=== PATIENT | female | born 1975 ===

== ENCOUNTER 2017-08-17 17:57 | Emergency (ER) | payer OTHER ==
[2017-08-17 17:57] VITALS: BMI 32.3
--- NOTE | 2017-08-17 18:40 | ED PDOC ---
Arrival/HPI - General Chief Complaint: Chest Pain Time Seen by Provider: 08/17/17 18:23 Historian: Patient - History of Present Illness Narrative History of Present Illness (Text): 08/17/17 18:41 41 year old female, with past medical history of hypothyroidism, presents to the Emergency department for complaining of pleuritic chest pain for past two days. Patient informs worsening pain with inspiration but states improvement with movement. Patient denies any fever, chills, nausea, vomiting, diarrhea, abdominal pain, chest pain, cough or any other complaints. She denies hx of htn , dm, tobacco use or cocaine use. Denies family hx of sudden cardiac . Denies syncope. Time/Duration: Other (2 days) Symptom Onset: Gradual Quality: Aching Past Medical History - Provider Review Nursing Documentation Reviewed: Yes - Infectious Disease Hx of Infectious Diseases: None - Tetanus Immunization Tetanus Immunization: Unknown - Cardiac Hx Cardiac Disorders: No - Pulmonary Hx Asthma: Yes (At time of of son 17 years ago.) - Neurological Hx Neurological Disorder: No - HEENT Hx HEENT Disorder: No - Renal Hx Renal Disorder: No - Endocrine/Metabolic Hx Hypothyroidism: Yes - Hematological/Oncological Hx Blood Disorders: No - Integumentary Hx Dermatological Disorder: No - Musculoskeletal/Rheumatological Hx Musculoskeletal Disorders: No - Gastrointestinal Hx Gastrointestinal Disorders: No - Genitourinary/Gynecological Hx Genitourinary Disorders: No - Psychiatric Hx Depression: No Hx Emotional Abuse: No Hx Physical Abuse: No Hx Substance Use: No - Surgical History Hx Splenectomy: (2006) Hx Thyroidectomy: Yes - Suicidal Assessment Feels Threatened In Home Enviroment: No Family/Social History - Physician Review Nursing Documentation Reviewed: Yes Family/Social History: No Known Family HX Smoking Status: Never Smoked Hx Alcohol Use: No Hx Substance Use: No Allergies/Home Meds Allergies/Adverse Reactions: Allergies No Known Allergies Allergy (Verified 08/17/17 18:11) Home Medications: Home Meds Medication Instructions Recorded Confirmed Levothyroxine [Synthroid] 125 mcg PO DAILY 06/17/15 08/17/17 Review of Systems - Physician Review All systems were reviewed & negative as marked: Yes - Review of Systems Constitutional: absent: Fevers Respiratory: absent: SOB, Cough Cardiovascular: Chest Pain Gastrointestinal: absent: Abdominal Pain, Diarrhea, Nausea, Vomiting Physical Exam Vital Signs Reviewed: Yes Vital Signs Temp Pulse Resp BP Pulse Ox 08/17/17 21:30 19 99 08/17/17 20:56 70 19 99 08/17/17 18:50 98.5 F 74 19 126/77 99 08/17/17 18:29 98.3 F 75 18 132/71 98 Temperature: Afebrile Blood Pressure: Normal Pulse: Regular Respiratory Rate: Normal Appearance: Positive for: Well-Appearing, Non-Toxic, Comfortable Pain Distress: None Mental Status: Positive for: Alert and Oriented X 3 - Systems Exam Head: Present: Atraumatic, Normocephalic Pupils: Present: PERRL Extroacular Muscles: Present: EOMI Conjunctiva: Present: Normal Mouth: Present: Moist Mucous Membranes Neck: Present: Normal Range of Motion Respiratory/Chest: Present: Clear to Auscultation, Good Air Exchange. No: Respiratory Distress, Accessory Muscle Use Cardiovascular: Present: Regular Rate and Rhythm, Normal S1, S2. No: Murmurs Abdomen: No: Tenderness, Distention, Peritoneal Signs Back: Present: Normal Inspection Upper Extremity: Present: Normal Inspection. No: Cyanosis, Edema Lower Extremity: Present: Normal Inspection. No: Edema Neurological: Present: GCS=15, CN II-XII Intact, Speech Normal Skin: Present: Warm, Dry, Normal Color. No: Rashes Psychiatric: Present: Alert, Oriented x 3, Normal Insight, Normal Concentration Medical Decision Making ED Course and Treatment: 08/17/17 18:35 Impression: 41 year old female presents to the Emergency department for pleuritic chest pain. No cardiac risk factors Plan: -- Labs -- Chest X-ray -- Aspirin -- Reassess and disposition Progress Notes: 08/17/17 21:29 CT of Chest " Pulmonary arteries: Pulmonary artery is suboptimally opacified. No central pulmonary embolism. No gross evidence of proximal branch embolism. Aorta: No acute findings. No thoracic aortic aneurysm. Lungs: Minimal haziness is noted in the lungs, nonspecific finding. No consolidation. Pleural space: Unremarkable. No significant effusion. No pneumothorax. Heart: Unremarkable. No cardiomegaly. No significant pericardial effusion. No evidence of RV dysfunction. Bones/joints: No acute fracture. No dislocation. Soft tissues: Unremarkable. Lymph nodes: Unremarkable. No enlarged lymph nodes. Small hiatal hernia. IMPRESSION: No acute findings" Labs show baseline anemia. Patient was made aware of her hiatal hernia. Chest pain is atypical and sounds non-cardiac as it is relieved with movement. Patient has no cardiac risk factors. Pain has been persistent x 2 days and resolved in ED after anti-inflammatory. Trop x 1 negative. Patient to follow- up with cardiology as outpatient. 08/17/17 22:03 - Lab Interpretations Lab Results: 08/17/17 19:04 08/17/17 19:04 Lab Results 08/17/17 19:04: Sodium 139, Potassium 3.4 L, Chloride 101, Carbon Dioxide 27, Anion Gap 14, BUN 14, Creatinine 0.9, Est GFR ( Amer) > 60, Est GFR (Non- Af Amer) > 60, Random Glucose 94, Calcium 8.2 L, Phosphorus 3.5, Magnesium 2.0, Total Bilirubin 0.2, AST 22, ALT 22, Alkaline Phosphatase 102, Total Creatine Kinase 127, Troponin I < 0.01, NT-Pro-B Natriuret Pep 46.3, Total Protein 8.2, Albumin 4.1, Globulin 4.1, Albumin/Globulin Ratio 1.0 L 08/17/17 19:04: PT 11.4, INR 1.00, APTT 30.7, D-Dimer, Quantitative 323 H 08/17/17 19:04: WBC 11.8 H D, RBC 3.98, Hgb 9.7 L, Hct 31.5 L, MCV 79.1 L, MCH 24.4 L, MCHC 30.8 L, RDW 16.6 H, Plt Count 416, MPV 8.7, Gran % 63.0, Lymph % ( Auto) 30.3, [place] % (Auto) 5.3, Eos % (Auto) 1.1 L, Baso % (Auto) 0.3, Gran # 7.40 H, Lymph # (Auto) 3.6 H, [place] # (Auto) 0.6, Eos # (Auto) 0.1, Baso # (Auto ) 0.04 - RAD Interpretation Radiology Orders: 08/17/17 18:36 CHEST PORTABLE [RAD] Stat 08/17/17 19:49 ANGIO CHEST PE PROTOCOL [CT] Stat - Medication Orders Current Medication Orders: Discontinued Medications Aspirin (Aspirin Chewable) 324 mg PO STAT STA Stop: 08/17/17 18:37 Last Admin: 04/09/18 19:06 Dose: 324 mg - Scribe Statement The provider has reviewed the documentation as recorded by the Scribe Otilia العراقي. All medical record entries made by the Joãoibe were at my direction and personally dictated by me. I have reviewed the chart and agree that the record accurately reflects my personal performance of the history, physical exam, medical decision making, and the department course for this patient. I have also personally directed, reviewed, and agree with the discharge instructions and disposition. Disposition/Present on Arrival - Present on Arrival Any Indicators Present on Arrival: No History of DVT/PE: No History of Uncontrolled Diabetes: No Urinary Catheter: No History of Decub. Ulcer: No History Surgical Site Infection Following: None - Disposition Have Diagnosis and Disposition been Completed?: Yes Diagnosis: Prolonged QT interval, Hiatal hernia Disposition: HOME/ ROUTINE Disposition Time: 21:27 Patient Plan: Discharge Condition: GOOD Discharge Instructions (ExitCare): Hiatal Hernia, Pleuritic Chest Pain Print Language: DIVEHI Additional Instructions: Follow-up with PMD within 2 days. Return to ED if condition worsens. Follow- up with cardiology within 2 days. Referrals: PCP,NO [Primary Care Provider] - Follow up with primary Navarro Barroso MD [Staff Provider] - Follow up with primary Forms: [employer] (Russian)
[2017-08-17 18:50] VITALS: RESP 19; TEMP 98.5; O2SAT 99
[2017-08-17 19:15] LABS: BASO # 0.04 K/mm3 (0.0-2.0); BASO % 0.3 % (0.0-3.0); EOS # 0.1 (0.0-0.7); EOS % 1.1 % (1.5-5.0); GRAN # 7.4 (1.4-6.5); HEMOGLOBIN 9.7 g/dL (12.0-16.0); LYMPH # 3.6 (1.2-3.4); LYMPH % 30.3 % (22.0-35.0); MEAN CELL VOLUME 79.1 fl (80.0-105.0); MEAN CORPUSCULAR HEMOGLOBIN 24.4 pg (25.0-35.0); MEAN CORPUSCULAR HGB CONC 30.8 g/dl (31.0-37.0); MEAN PLATELET VOLUME 8.7 fl (7.0-11.0); MONO # 0.6 (0.1-0.6); MONO % 5.3 % (1.0-6.0); RBC 3.98 10^6/uL (3.5-6.1); RED CELL DISTRIBUTION WIDTH 16.6 % (11.5-14.5); WHITE BLOOD COUNT 11.8 10^3/ul (4.5-11.0)
[2017-08-17 19:29] LABS: PARTIAL THROMBOPLASTIN TIME 30.7 Seconds (25.1-36.5); PROTHROMBIN TIME 11.4 SECONDS (9.4-12.5)
[2017-08-17 19:43] LABS: ALBUMIN 4.1 g/dL (3.0-4.8); ALT/SGPT 22 U/L (7-56); AST/SGOT 22 U/L (14-36); B-TYPE NATRIURETIC PEPTIDE 46.3 pg/mL (0-450); BLOOD UREA NITROGEN 14 mg/dL (7-21); CALCIUM 8.2 mg/dL (8.4-10.5); GFR AFRICAN-AMERICAN > 60; GFR NON-AFRICAN AMERICAN > 60
[2017-08-17 19:45] LABS: TROPONIN I < 0.01 ng/mL
[2017-08-17] MEDS ORDERED: Iohexol 350 MG/100 ML VIAL ONE (19:52)
[2017-08-17 20:58] VITALS: BP 126/77; PULSE 70
--- NOTE | 2017-08-18 08:57 | CT ---
PROCEDURE: CT Chest with contrast (Pulmonary Angiogram) HISTORY: pleuritic chest pain COMPARISON: None available. TECHNIQUE: Axial computed tomography images were obtained of the chest in the pulmonary arterial phase of enhancement. Coronal and sagittal reformatted images were created and reviewed. Intravenous contrast dose: 100 mL Omnipaque 350 Radiation dose: Total exam DLP = 497.26 mGy-cm. This CT exam was performed using one or more of the following dose reduction techniques: Automated exposure control, adjustment of the mA and/or kV according to patient size, and/or use of iterative reconstruction technique. FINDINGS: PULMONARY ARTERIES: There are no filling defects in the pulmonary arteries to suggest acute pulmonary embolism. AORTA: No acute findings. No thoracic aortic aneurysm. LUNGS: The lungs are clear. No nodule, mass or pulmonary consolidation. PLEURAL SPACES: No effusion or pneuomothorax. HEART: The heart is normal in size. No significant pericardial effusion. LYMPH NODES: No pathologic lymphadenopathy. BONES, CHEST WALL: Unremarkable. No fracture or destructive lesion OTHER FINDINGS: Unremarkable. IMPRESSION: No CTA evidence for acute pulmonary embolism. No consolidation, pleural effusion or pneumothorax. A preliminary report was provided by [facility].
--- NOTE | 2017-08-18 09:34 | RAD ---
HISTORY: chest pain COMPARISON: 06/17/2015 FINDINGS: LUNGS: No active pulmonary disease. PLEURA: No significant pleural effusion identified, no pneumothorax apparent. CARDIOVASCULAR: Normal. OSSEOUS STRUCTURES: No significant abnormalities. VISUALIZED UPPER ABDOMEN: Normal. OTHER FINDINGS: None. IMPRESSION: No active disease.
--- NOTE | 2017-08-18 10:24 | CARD ---
APPROVED REPORT EKG Measurement Heart [id number] <Conclusion> Normal sinus rhythm Prolonged QT Artifact present
== END 2017-08-17 21:31 | disposition home or self-care (01) ==
LOC: ED 17:57
DX: I45.81 Long QT syndrome (principal); K44.9 Diaphragmatic hernia without obstruction or gangrene
CPT/HCPCS: 71045; 71275; 80053; 82550; 83735; 83880; 84100; 84484; 85025; 85378; 85610; 85730; 93005; 99283; Q9967

== ENCOUNTER 2018-01-24 12:26 | Emergency (ER) | payer OTHER ==
[2018-01-24 12:26] VITALS: BMI 32.3
[2018-01-24 13:49] LABS: URINE BILIRUBIN NEGATIVE (NEGATIVE); URINE BLOOD SMALL (NEGATIVE); URINE GLUCOSE (UA) NEGATIVE (NEGATIVE); URINE LEUKOCYTE ESTERASE MODERATE Leu/uL (NEGATIVE); URINE PROTEIN 30 mg/dL (<30 mg/dL); URINE UROBILINOGEN 0.2 E.U./dL (<1 E.U./dL)
[2018-01-24 13:50] LABS: BASO # 0.04 K/mm3 (0.0-2.0); BASO % 0.4 % (0.0-3.0); EOS # 0.2 (0.0-0.7); EOS % 1.6 % (1.5-5.0); GRAN # 6.88 (1.4-6.5); GRAN % 65.1 % (50.0-68.0); HEMOGLOBIN 10.2 g/dL (12.0-16.0); LYMPH # 2.8 (1.2-3.4); LYMPH % 26.7 % (22.0-35.0); MEAN CELL VOLUME 80.1 fl (80.0-105.0); MEAN CORPUSCULAR HEMOGLOBIN 24.8 pg (25.0-35.0); MEAN CORPUSCULAR HGB CONC 30.9 g/dl (31.0-37.0); MONO # 0.7 (0.1-0.6); MONO % 6.2 % (1.0-6.0); RBC 4.12 10^6/uL (3.5-6.1); RED CELL DISTRIBUTION WIDTH 16.9 % (11.5-14.5); WHITE BLOOD COUNT 10.6 10^3/ul (4.5-11.0)
[2018-01-24 13:56] LABS: ALBUMIN 4.6 g/dL (3.0-4.8); ALT/SGPT 16 U/L (7-56); AST/SGOT 37 U/L (14-36); BLOOD UREA NITROGEN 11 mg/dL (7-21); CALCIUM 8.6 mg/dL (8.4-10.5); GFR NON-AFRICAN AMERICAN > 60
--- NOTE | 2018-01-24 14:00 | ED PDOC ---
Arrival/HPI - General Historian: Patient - History of Present Illness Time/Duration: 24 hours (12-16 hours) Symptom Onset: Sudden, Gradual Symptom Course: Worsening Quality: Stabbing - General Chief Complaint: Lower Extremity Problem/Injury Time Seen by Provider: 01/24/18 12:56 - History of Present Illness Narrative History of Present Illness (Text): 01/24/18 13:41 Patient is a 42 year old female with a past medical history of thyroid cancer (s /p resection and radiation x 1 therapy) and hypothyroidism is presenting to the emergency room with a complaint of right sided low back pain. The pain started last night and is located in her right buttocks/low back. It radiates down the back of her right leg and stops above her knee. It also radiates across her back and upwards towards her right shoulder. The pain was mild last night but intensified overnight. She has never experienced this pain before. It is gripping/shooting in nature. Patient also reports having productive cough for the past 4 days. The cough is producing green phlegm. She has not seen anyone for the cough and has been drinking tea. The cough has not improved. She rashid fevers, chills, nausea, vomiting, diarrhea, constipation, chest pain, shortness of breath, abdominal pain, numbness or tingling. PMD: Dr. Hamilton PMH: thyroid cancer (s/p resection and radiation x 1 therapy) and hypothyroidism PSH: thyroidectomy and tubal ligation Social: denies tobacco, alcohol or illicit drug use All: NKDA (Clayton Virk) Past Medical History - Provider Review Nursing Documentation Reviewed: Yes - Infectious Disease Hx of Infectious Diseases: None - Tetanus Immunization Tetanus Immunization: Unknown - Cardiac Hx Cardiac Disorders: No - Pulmonary Hx Asthma: Yes (At time of of son 17 years ago.) - Neurological Hx Neurological Disorder: No - HEENT Hx HEENT Disorder: No - Renal Hx Renal Disorder: No - Endocrine/Metabolic Hx Hypothyroidism: Yes - Hematological/Oncological Hx Blood Disorders: No - Integumentary Hx Dermatological Disorder: No - Musculoskeletal/Rheumatological Hx Musculoskeletal Disorders: No - Gastrointestinal Hx Gastrointestinal Disorders: No - Genitourinary/Gynecological Hx Genitourinary Disorders: No - Psychiatric Hx Depression: No Hx Emotional Abuse: No Hx Physical Abuse: No Hx Substance Use: No - Surgical History Hx Splenectomy: (2006) Hx Thyroidectomy: Yes - Anesthesia Hx Anesthesia: Yes Hx Anesthesia Reactions: No Hx Malignant Hyperthermia: No - Suicidal Assessment Feels Threatened In Home Enviroment: No Family/Social History - Physician Review Nursing Documentation Reviewed: Yes Family/Social History: No Known Family HX Smoking Status: See HPI. Hx Alcohol Use: No Hx Substance Use: No Allergies/Home Meds Allergies/Adverse Reactions: Allergies No Known Allergies Allergy (Verified 01/24/18 12:59) Home Medications: Home Meds Medication Instructions Recorded Confirmed Levothyroxine [Synthroid] 125 mcg PO DAILY 06/17/15 01/24/18 Review of Systems - Physician Review All systems were reviewed & negative as marked: Yes - Review of Systems Constitutional: Normal. absent: Fatigue, Fevers Eyes: Normal. absent: Vision Changes ENT: Normal Respiratory: Cough, Sputum (green phlegm). absent: SOB, Wheezing Cardiovascular: Normal. absent: Chest Pain, Palpitations, Edema, Calf Pain Gastrointestinal: Normal. absent: Abdominal Pain, Stool Changes, Constipation, Diarrhea, Nausea, Vomiting Genitourinary Female: Normal. absent: Dysuria, Frequency, Hematuria Musculoskeletal: Back Pain (low right back, radiates across back, down right leg and up to right shoulder). absent: Neck Pain, Joint Swelling, Myalgias Skin: Normal. absent: Rash Neurological: Normal, Other. absent: Headache, Dizziness, Focal Weakness Endocrine: Normal. absent: Diaphoresis Hemo/Lymphatic: Normal. absent: Adenopathy Psychiatric: Normal. absent: Anxiety Physical Exam Vital Signs Reviewed: Yes Temperature: Afebrile Blood Pressure: Normal Pulse: Regular Respiratory Rate: Normal Appearance: Positive for: Uncomfortable Pain Distress: Mild Mental Status: Positive for: Alert and Oriented X 3 - Systems Exam Head: Present: Atraumatic, Normocephalic Extroacular Muscles: Present: EOMI Conjunctiva: Present: Normal Mouth: Present: Moist Mucous Membranes Pharnyx: Present: Normal. No: ERYTHEMA, EXUDATE, TONSILS ENLARGED, Muffled/ Hoarse Voice, Strider Nose (External): Present: Atraumatic Nose (Internal): Present: Normal Inspection, No Active Bleeding, Moist Neck: Present: Normal Range of Motion. No: Meningeal Signs, MIDLINE TENDERNESS , JVD Respiratory/Chest: Present: Clear to Auscultation, Good Air Exchange. No: Respiratory Distress, Accessory Muscle Use Cardiovascular: Present: Regular Rate and Rhythm, Normal S1, S2. No: Murmurs Abdomen: No: Tenderness, Distention, Peritoneal Signs Back: Present: Paraspinal Tenderness (right sided), Other (right buttock tenderness). No: CVA Tenderness, Midline Tenderness, Pain with Leg Raise Upper Extremity: Present: Normal Inspection, NORMAL PULSES. No: Cyanosis, Edema Lower Extremity: Present: Normal Inspection, NORMAL PULSES. No: Edema, CALF TENDERNESS Neurological: Present: GCS=15, Speech Normal, Motor Func Grossly Intact. No: CN II-XII Intact Skin: Present: Warm, Dry, Normal Color. No: Rashes Psychiatric: Present: Alert, Oriented x 3, Normal Insight, Normal Concentration Vital Signs Temp Pulse Resp BP Pulse Ox 01/24/18 16:26 97.9 F 67 18 131/69 100 Medical Decision Making Re-evaluation Time: 16:54 Reassessment Condition: Re-examined, Improving,but remains with symptoms ED Course and Treatment: 01/24/18 14:30 Patient is 42 year old female with a past medical history of thryoid ca and hypothyroidism presenting with right low back pain radiating down right leg, across back and up to right shoulder. working ddx is sciatica pain. labs, cxr, CT of lumbar spine Toradol for pain Patient found to have a UTI. Given 1gm of RocephinIV 01/24/18 16:[address] with with patient. Patient found to have a bulging disc in L5-S1. Discussed plan discharge patient home with referral to Neurosurg., Dr. Fox and prescriptions: - Keflex x 7 days - Flexeril 10mg - disp 30 - Ibuprofen 800mg - disp 30 - Medrol dose pack Patient agrees and understands instructions. (Sully,Clayton) Patient Seen With Resident: In agreement with resident note. Patient was seen and evaluated with resident, came up with plan and treatment together. 01/24/2018 16:22 Chest X-ray IMPRESSION: No active disease. Dictator: Tristan Mathews MD (Alirio Sloan) - Lab Interpretations Lab Results: 01/24/18 13:30 01/24/18 13:30 Lab Results 01/24/18 15:15: Influenza Typ A,B (EIA) Negative for flu a/b 01/24/18 13:30: Sodium 142, Potassium 3.4 L, Chloride 103, Carbon Dioxide 27, Anion Gap 15, BUN 11, Creatinine 0.8, Est GFR ( Amer) > 60, Est GFR (Non- Af Amer) > 60, Random Glucose 118 H, Calcium 8.6, Total Bilirubin 0.3, AST 37 H D, ALT 16, Alkaline Phosphatase 95, Total Protein 9.4 H, Albumin 4.6, Globulin 4.8, Albumin/Globulin Ratio 1.0 L 01/24/18 13:30: WBC 10.6, RBC 4.12, Hgb 10.2 L, Hct 33.0 L, MCV 80.1, MCH 24.8 L , MCHC 30.9 L, RDW 16.9 H, Plt Count 493 H, MPV 9.0, Gran % 65.1, Lymph % (Auto ) 26.7, [place] % (Auto) 6.2 H, Eos % (Auto) 1.6, Baso % (Auto) 0.4, Gran # 6.88 H , Lymph # (Auto) 2.8, [place] # (Auto) 0.7 H, Eos # (Auto) 0.2, Baso # (Auto) 0.04 01/24/18 13:15: Urine Color Yellow, Urine Appearance Clear, Urine pH 7.0, Ur Specific [place] 1.020, Urine Protein 30 H, Urine Glucose (UA) Negative, Urine Ketones Negative, Urine Blood Small H, Urine Nitrate Negative, Urine Bilirubin Negative, Urine Urobilinogen 0.2, Ur Leukocyte Esterase Moderate H, Urine RBC 0 - 2, Urine WBC 5 - 10, Ur Epithelial Cells 10 - 12, Urine Bacteria Neg - RAD Interpretation Radiology Orders: 01/24/18 13:23 LUMBAR SPINE W/O CONTRAST [CT] Stat CHEST TWO VIEWS (PA/LAT) [RAD] Stat - Medication Orders Current Medication Orders: Discontinued Medications Ceftriaxone Sodium (Rocephin 1 Gram Ivpb) 1 gm in 100 mls @ 100 mls/hr IVPB STAT STA PRN Reason: Protocol Stop: 01/24/18 16:03 Last Admin: 01/24/18 15:10 Dose: 100 mls/hr eMAR Start Stop Document 01/24/18 15:10 [place] (Rec: 01/24/18 15:36 SUDO [id number]) Intravenous Solution Start Date 01/24/18 Start Time 15:10 End Date 01/24/18 End time 15:40 Total Infusion Time 30 Ketorolac Tromethamine (Toradol) 30 mg IVP STAT STA Stop: 01/24/18 13:29 Last Admin: 01/24/18 14:23 Dose: 30 mg MAR Pain Assessment Document 01/24/18 14:23 [facility] (Rec: 01/24/18 14:25 [id number] Pain Reassessment Is this a pain reassessment? No Sleep Is patient sleeping during reassessment? No Presence of Pain Presence of Pain Yes Pain Scale Used Pain Scale Used Numeric Location Pain Location Body Site Lumbar Description Description Constant Intensity of Pain at present 10 Pain Behavior Irritability Rubbing Site Facial Grimacing Alleviating Factors/Management Medication Techniques IVP Administration Document 01/24/18 14:23 SUD (Rec: 01/24/18 14:25 [facility] [id number]) Charges for Administration # of IVP Administrations 1 Disposition/Present on Arrival - Present on Arrival Any Indicators Present on Arrival: No History of DVT/PE: No History of Uncontrolled Diabetes: No Urinary Catheter: No History of Decub. Ulcer: No History Surgical Site Infection Following: None - Disposition Have Diagnosis and Disposition been Completed?: Yes Disposition Time: 17:01 Patient Plan: Discharge - Disposition Diagnosis: Bulging of lumbar intervertebral disc, UTI (urinary tract infection) Disposition: HOME/ ROUTINE Condition: FAIR Discharge Instructions (ExitCare): Herniated Disc (DC) Additional Instructions: Patient is to take medications as directed. She is to follow up with her primary care physician within 2-3 days. Prescriptions: Cephalexin [Keflex] 500 mg PO TID #21 capsule Cyclobenzaprine [Cyclobenzaprine HCl] 10 mg PO TID #30 tab Ibuprofen [Motrin Tab] 800 mg PO TID #30 tab Methylprednisolone [Medrol Dose Pack (21 tabs)] 4 mg PO DAILY #21 mg Referrals: Isidro Fox MD [Staff Provider] - Follow up with primary Forms: [employer] (Telugu)
[2018-01-24 14:07] LABS: URINE APPEARANCE CLEAR (CLEAR); URINE COLOR YELLOW (YELLOW)
[2018-01-24 14:15] LABS: URINE BACTERIA NEG (NEG); URINE RBC 0 - 2 /hpf (0-2)
[2018-01-24] MEDS ORDERED: cefTRIAXone 1 gm 1 GM/100 ML BAG IVPB STA (15:04)
--- NOTE | 2018-01-24 16:24 | RAD ---
Date of service: 01/24/2018 HISTORY: productive cough COMPARISON: 08/17/2017 TECHNIQUE: Chest PA and lateral FINDINGS: LUNGS: No active pulmonary disease. PLEURA: No significant pleural effusion identified. No pneumothorax apparent. CARDIOVASCULAR: Normal. OSSEOUS STRUCTURES: No significant abnormalities. VISUALIZED UPPER ABDOMEN: Normal. OTHER FINDINGS: None. IMPRESSION: No active disease.
[2018-01-24 16:28] VITALS: BP 131/69; PULSE 67; RESP 18; TEMP 97.9; O2SAT 100
--- NOTE | 2018-01-24 16:31 | CT ---
Date of service: 01/24/2018 PROCEDURE: CT Lumbar Spine without contrast HISTORY: low back pain, R>L, no trauma COMPARISON: None available. TECHNIQUE: Axial computed tomography images were obtained of the lumbar spine without the use of intravenous contrast. Coronal and sagittal reformatted images were created and reviewed. Radiation dose: Total exam DLP = 1601 mGy-cm. This CT exam was performed using one or more of the following dose reduction techniques: Automated exposure control, adjustment of the mA and/or kV according to patient size, and/or use of iterative reconstruction technique. FINDINGS: VERTEBRAE: Unremarkable. No fracture. Normal alignment. DISCS/SPINAL CANAL/NEURAL FORAMINA: L1-2: Unremarkable. L2-3: Unremarkable. L3-4: Unremarkable. L4-5: Unremarkable. L5-S1: Mild diffuse disc bulge at L5-S1 left greater than right PARASPINAL SOFT TISSUES: Unremarkable. OTHER FINDINGS: None. IMPRESSION: Mild diffuse disc bulge at L5-S1 left greater than right No acute compression fractures
== END 2018-01-24 15:10 | disposition home or self-care (01) ==
LOC: ED 12:26
DX: M51.26 Other intervertebral disc displacement, lumbar region (principal); N39.0 Urinary tract infection, site not specified
CPT/HCPCS: 71046; 72131; 80053; 81001; 85025; 87086; 87804; 96365; 96375; 99283; J0696; J1885